=== PATIENT | female | born 1970 | race Caucasian/White ===

== ENCOUNTER → 2022-01-10 | Outpatient (CLI) | payer BC ==
--- NOTE | 2022-01-10 16:31 | Diagnostic Imaging Report ---
PROCEDURE: CT sinus w/o contrast. TECHNIQUE: Multiple contiguous axial images were obtained through the sinuses without the use of intravenous contrast. Coronal reformations were performed. All CT scans use one or more of the following dose optimizing techniques: automated exposure control, MA and/or KvP adjustment based on patient size and exam type or iterative reconstruction. INDICATION: Chronic recurrent sinusitis. COMPARISON: None. FINDINGS: Frothy secretions are seen in the right maxillary sinus. The remainder of the paranasal sinuses are clear. The ostiomeatal complexes are patent. The frontoethmoid and sphenoethmoid recesses are clear. A left-sided mastoid effusion is present. The bony nasal septum is slightly deviated to the right. No acute facial fractures. The globes and orbits are symmetric and unremarkable. Included intracranial contents show no acute abnormalities. The included soft tissues of the head are normal in appearance. IMPRESSION: 1. Findings suggestive of acute sinusitis involving the right maxillary sinus. 2. Left-sided mastoid effusion. Dictated by: Dictated on workstation # [id number]
== END ==
LOC: RAD FS 12:56
PROVIDERS: ATTEND Nurse Practitioner Family
DX: J32.8 Other chronic sinusitis (principal); H74.8X2 Other specified disorders of left middle ear and mastoid
CPT/HCPCS: 70486